=== PATIENT | male | born 1975 | race Caucasian/White ===

== ENCOUNTER 2025-05-22 09:29 | Observation (INO) | payer BC, SELFPAY ==
[2025-05-22 09:45] VITALS: BP 173/101; PULSE 84; RESP 18; TEMP 36.6; O2SAT 98; BMI 28.7
[2025-05-22 10:42] VITALS: BP 135/89; PULSE 75; RESP 18; O2SAT 98
[2025-05-22 10:45] LABS: MANUAL DIFF FLAG NO
--- NOTE | 2025-05-22 10:45 | ED.RECABL ---
HPI - Recheck/Abnormal Lab/Rx General Chief Complaint: Recheck/Abnormal Lab/Rx Stated Complaint: Abnormal labs Time Seen by Provider: 05/22/25 09:55 Source: patient and old records reviewed Mode of arrival: ambulatory Limitations: no limitations History of Present Illness ED Provider: SAGE RANGEL narrative: 50 yo male prior DM was on metformin but changed his diet and got off. His most recent Hemoglobin A1c was 5 but he has not been eating as well as he usually does. He woke up with L sided facial paralysis that has worsened and he was diagnosed with bells palsy by on Monday - he was started on prednisone and valtrex. He had labs done at the day he was diagnosed and his WBC count was low and his BS was up and they noted Na 130. They told him to come back for recheck of hemoglobin A1c today but then ended up referring him to the ED. He has also had elevated BP which is new. He has some pain to the left side of the neck. MD complaint: abnormal lab Initial visit (ago): day(s) (2) Initial visit for: other (bells palsy) Returns today for: called because of abnormal lab/test Symptoms since prior visit: no new symptoms Context: planned re-check and called for abnormal lab result Associated symptoms: none Related Data Allergies Allergy/AdvReac Type Severity Reaction Status Date / Time environmental allergies AdvReac Runny Nose Verified 05/22/25 09:47 Review of Systems Review of Systems: Constitutional : No Fever, No Chills, No Fatigue ENT/Mouth : No sore throat, No Rhinorrhea Eyes: No Eye Pain, No Swelling, No Redness Cardiovascular : No Chest Pain, No SOB, No Dyspnea on Exertion Respiratory : No Cough, No Sputum Gastrointestinal : No Nausea, No Vomiting, No Diarrhea, No abdominal Pain Genitourinary : No Dysuria, No Urinary Frequency, No Hematuria, Musculoskeletal : No joint pain, No Myalgias, No Joint Swelling Skin : No Skin Lesions, No rash Neuro : pos Weakness, pos Numbness, No Dizziness, positive Headache All other systems reviewed and are negative [facility] Past Medical History Attestation statement: The following information was validated with the patient. Source: old records reviewed Medical History Diabetes Social History Social History (Updated 05/22/25 @ 11:45 by MARISOL Zamarripa Alcohol intake: current Patient Tobacco Use Status: Never used Tobacco Smoked in Last 30 Days: No Advance Directives: No Advance Directives Information Provided: Yes Physical Exam Vital Signs: Vital Signs: Last Vital Signs Temp 98.2 F 05/22/25 12:51 Pulse 68 05/22/25 12:51 Resp 18 05/22/25 12:51 BP 143/84 H 05/22/25 12:51 Pulse Ox 100 05/22/25 12:51 O2 Del Method Room Air 05/22/25 12:51 BMI result Body Mass Index 28.7 Appearance: Alert. Oriented X3. No acute distress. Eyes: Pupils equal, round and reactive to light. ENT: Pharynx normal. Neck: Normal inspection. Neck supple. CVS: Normal heart rate and rhythm. Pulses normal. Respiratory: No respiratory distress. Breath sounds normal. Abdomen: Soft and nontender. Skin: Skin warm and dry. Normal skin color. Extremities: No lower extremity edema. Neuro: Oriented X 3. extremities intact, L sided complete lower and upper facial droop. eye remiains open cannot raise his eyebrow Medications Administered Discontinued Medications Generic Name Dose Route Start Last Admin Trade Name Freq PRN Reason Stop Dose Admin Lactated Ringer's 1,000 mls @ 999 mls/hr 05/22/25 11:17 05/22/25 12:40 Lr IV 05/22/25 12:17 Infused .Q1H1M ONE Infusion Lactated Ringer's 1,000 mls @ 999 mls/hr 05/22/25 11:18 05/22/25 12:40 Lr IV 05/22/25 12:18 Infused .Q1H1M ONE Infusion Medical Decision Making Medical Decision Making MDM Narrative: 50 yo male with prior DM but had done well with diet and has not been on metformin. Just diagnosed with bells palsy on Monday on valtrex and prednisone now with low Na, elevated BS, HTN - at this time will need repeat labs, IVF x 2L, check hemoglobin A1c. He likely has chronic worsening issues that were made worse with prednisone. [id number] HbA1c 10 - he will need lantus coverage he is aware, he still has glucometer at home. Differential Diagnosis Differential Diagnoses: The differential diagnosis associated with the presentation includes recurrence of DM2 Admission/Observation Consideration of admission/observation: Escalation of care including admission/observation considered admit given acidosis even after IVF x 2L Consult Healthcare Provider Management of the patient was discussed with: Hospitalist (will admit) Lab Data MDM Lab Attestation statement: I reviewed the patient's lab results. 05/22/25 10:41 05/22/25 13:44 Labs: Lab Results 05/22/25 05/22/25 05/22/25 Range/Units 10:41 11:43 11:52 WBC 3.3 L (4.8-10.8) X10*3/uL RBC 4.94 (4.60-5.80) X10*6/uL Hgb 14.2 (14.0-18.0) g/dl Hct 40.2 L (42.0-52.0) % MCV 81.4 (80.0-98.0) fL MCH 28.7 (27.0-33.0) pg MCHC 35.3 (31.0-36.0) g/dl RDW 15.1 (11.0-16.0) % Plt Count 192 (160-400) X10*3/uL MPV 9.3 L (9.4-12.4) fL Immature Gran % (Auto) 0.0 (0.0-0.4) % Neut % (Auto) 33.2 L (45-73) % Lymph % (Auto) 51.8 H (20-40) % [place] % (Auto) 13.2 H (2-11) % Eos % (Auto) 1.2 (0-4) % Baso % (Auto) 0.6 (0-2) % Lymph # (Auto) 1.7 (1.2-4.9) X10*3/uL [place] # (Auto) 0.4 (0.1-1.2) X10*3/uL Eos # (Auto) 0.0 (0.0-0.4) X10*3/uL Baso # (Auto) 0.0 (0.0-0.2) X10*3/uL Abs Immat Gran (auto) 0.00 (0.00-0.03) X10*3/uL Absolute Neuts (auto) 1.1 L (2.0-8.3) x10*3/uL Absolute Nucleated RBC 0.000 (0.0-0.012) X10*3/uL Nucleated RBC % (auto) 0.0 (0.0-0.2) /100WBC VBG pH 7.38 (7.32-7.43) VBG pCO2 25 mmHg VBG pO2 66 mmHg VBG HCO3 15 L (22-26) mmol/L VBG O2 Saturation 92.0 % VBG Base Excess -8.0 mmol/L Sodium 132 L (135-145) mmol/L Potassium 3.9 (3.3-5.1) mmol/L Chloride 101 (96-108) mmol/L Carbon Dioxide 16 L (22-29) mmol/L Anion Gap 19 (12-20) BUN 23 H (9-16) mg/dL Creatinine 0.96 (0.5-1.4) mg/dL Estim Creat Clear Calc 96.8 Estimated GFR > 60 Random Glucose 284 H (60-115) mg/dL Estimat Average Glucose 263 mg/dL Hemoglobin A1c % 10.8 H (<6.0) % Lactic Acid 1.3 (0.5-2.0) mmol/L Calcium 8.7 (8.4-10.2) mg/dL Total Bilirubin 0.3 (0.0-1.0) mg/dL AST 21 (5-37) U/L ALT 29 (0-40) U/L Alkaline Phosphatase 64 (39-117) U/L Total Protein 8.0 (6.5-8.0) g/dL Albumin 4.2 (3.5-5.0) g/dL Beta-Hydroxybutyrate 4.29 H (0.02-0.27) mmol/L 05/22/25 Range/Units 13:44 WBC (4.8-10.8) X10*3/uL RBC (4.60-5.80) X10*6/uL Hgb (14.0-18.0) g/dl Hct (42.0-52.0) % MCV (80.0-98.0) fL MCH (27.0-33.0) pg MCHC (31.0-36.0) g/dl RDW (11.0-16.0) % Plt Count (160-400) X10*3/uL MPV (9.4-12.4) fL Immature Gran % (Auto) (0.0-0.4) % Neut % (Auto) (45-73) % Lymph % (Auto) (20-40) % [place] % (Auto) (2-11) % Eos % (Auto) (0-4) % Baso % (Auto) (0-2) % Lymph # (Auto) (1.2-4.9) X10*3/uL [place] # (Auto) (0.1-1.2) X10*3/uL Eos # (Auto) (0.0-0.4) X10*3/uL Baso # (Auto) (0.0-0.2) X10*3/uL Abs Immat Gran (auto) (0.00-0.03) X10*3/uL Absolute Neuts (auto) (2.0-8.3) x10*3/uL Absolute Nucleated RBC (0.0-0.012) X10*3/uL Nucleated RBC % (auto) (0.0-0.2) /100WBC VBG pH (7.32-7.43) VBG pCO2 mmHg VBG pO2 mmHg VBG HCO3 (22-26) mmol/L VBG O2 Saturation % VBG Base Excess mmol/L Sodium 133 L (135-145) mmol/L Potassium 4.0 (3.3-5.1) mmol/L Chloride 103 (96-108) mmol/L Carbon Dioxide 18 L (22-29) mmol/L Anion Gap 16 (12-20) BUN 18 H (9-16) mg/dL Creatinine 0.85 (0.5-1.4) mg/dL Estim Creat Clear Calc 109.4 Estimated GFR > 60 Random Glucose 251 H (60-115) mg/dL Estimat Average Glucose mg/dL Hemoglobin A1c % (<6.0) % Lactic Acid (0.5-2.0) mmol/L Calcium 8.5 (8.4-10.2) mg/dL Total Bilirubin (0.0-1.0) mg/dL AST (5-37) U/L ALT (0-40) U/L Alkaline Phosphatase (39-117) U/L Total Protein (6.5-8.0) g/dL Albumin (3.5-5.0) g/dL Beta-Hydroxybutyrate (0.02-0.27) mmol/L External Record Review External record reviewed: Outpatient record Prescription Management I considered prescription management with: Other Discharge Plan Discharge Clinical Impression: Acidosis, Diabetes Patient Disposition: Admitted As Inpatient Print Language: Nepali
[2025-05-22 10:49] LABS: Hematocrit 40.2 % (42.0-52.0); Hemoglobin 14.2 g/dl (14.0-18.0); Imm Gran Abs Auto 0.00 X10*3/uL (0.00-0.03); Imm Gran Pct Auto 0.0 % (0.0-0.4); Lymphocytes Absolute Auto 1.7 X10*3/uL (1.2-4.9); Mean Corpuscular HGB Conc 35.3 g/dl (31.0-36.0); Mean Corpuscular Hemoglobin 28.7 pg (27.0-33.0); Mean Corpuscular Volume 81.4 fL (80.0-98.0); NRBC Abs Auto 0.000 X10*3/uL (0.0-0.012); NRBC Pct Auto 0.0 /100WBC (0.0-0.2); Platelet Count 192 X10*3/uL (160-400); Red Blood Count 4.94 X10*6/uL (4.60-5.80); White Blood Count 3.3 X10*3/uL (4.8-10.8)
[2025-05-22 10:54] LABS: Hemoglobin A1C 344.5268 umol/L; Total Hemoglobin (HGBA1C) 3651.8483 umol/L
[2025-05-22 11:05] LABS: Alanine Aminotransferase 29 U/L (0-40); Albumin Level 4.2 g/dL (3.5-5.0); Alkaline Phosphatase 64 U/L (39-117); Anion Gap 19 (12-20); Aspartate Amino Transferase 21 U/L (5-37); Blood Urea Nitrogen 23 mg/dL (9-16); Calcium 8.7 mg/dL (8.4-10.2); Carbon Dioxide 16 mmol/L (22-29); Chloride 101 mmol/L (96-108); Creatinine Clr Calc Pharmacy 96.8; Estimated Glomerular Filt Rate > 60; Potassium 3.9 mmol/L (3.3-5.1); Sodium 132 mmol/L (135-145); Total Protein 8.0 g/dL (6.5-8.0)
[2025-05-22] MEDS: Lactated Ringers 1,000 ML 999 ML IV ×2 (11:31→11:33)
[2025-05-22 11:55] LABS: Venous Blood Gas Refer to POC result
[2025-05-22 11:56] LABS: VBG HCO3 15 mmol/L (22-26); VBG O2 % Saturation 92.0 %
[2025-05-22 12:51] VITALS: BP 143/84; PULSE 68; RESP 18; TEMP 36.8; O2SAT 100
[2025-05-22 14:07] LABS: Anion Gap 16 (12-20); Blood Urea Nitrogen 18 mg/dL (9-16); Calcium 8.5 mg/dL (8.4-10.2); Carbon Dioxide 18 mmol/L (22-29); Chloride 103 mmol/L (96-108); Creatinine Clr Calc Pharmacy 109.4; Estimated Glomerular Filt Rate > 60; Potassium 4.0 mmol/L (3.3-5.1); Sodium 133 mmol/L (135-145)
--- NOTE | 2025-05-22 14:57 | PHA.MEDREC ---
Addendum entered by Vandana Mathur RPh 05/22/25 15:00: reviewed by [facility]. Original Note: Pharmacy Consult ? Medication Reconciliation Pharmacy has completed the medication reconciliation. Patient was able to confirm med list. Patient last had his medications yesterday.
--- NOTE | 2025-05-22 14:59 | PM.IMHP ---
History of Present Illness Date of Service: 05/22/25 Chief Complaint: abnormal labs The patient is a 50-year-old male who is traveling to [place] for work (lives in [place]) and was diagnosed with Cook's palsy about 3 days prior to hospitalization. Since then he has been on treatment with Valtrex and prednisone. The patient presented to the emergency room due to abnormal labs drawn at urgent care. He denies any specific complaints. He reports that he was diagnosed with diabetes about 8-9 years ago and was on metformin. He states that he improved his diet and was able to wean off of any medications for his diabetes. He reports his last A1c about 1.5 years ago to be around 5 point something. He does however endorse that he has been traveling more recently and has been unable to maintain his diet. In the emergency room the patient had blood work which showed a bicarb of 16 with a anion gap of 19. Subsequent VBG showed normal pH but a low bicarb. His beta hydroxybutyrate was elevated. His sugars were in the 252-80 range. He was treated with 2 L of intravenous fluids with improvement in his chemistry with bicarb going up to 18. However given his positive ketones earlier, not being currently on any medications for diabetes and an A1c today of 10.8, he will be admitted to the hospital for further treatment. Review of Systems Review of Systems: Negative except HPI/interval history. [facility] Medical History Diabetes Social History (Updated 05/22/25 @ 11:45 by Erica Bill DO) Alcohol intake: current Patient Tobacco Use Status: Never used Tobacco Smoked in Last 30 Days: No Advance Directives: No Advance Directives Information Provided: Yes Meds Allergies Allergy/AdvReac Type Severity Reaction Status Date / Time environmental allergies AdvReac Runny Nose Verified 05/22/25 09:47 Active Medications: Current Medications Acetaminophen (Acetaminophen 325 Mg Tablet) 650 mg PO Q6H PRN PRN Reason: Pain, Mild 1-3,fever,headache Calcium Carbonate (Calcium Carbonate 750 Mg Tab.Chew) 750 mg PO Q4H PRN PRN Reason: Heartburn Lactated Ringer's (Lr) 1,000 mls @ 100 mls/hr IVCONT .Q10H [facility] Insulin Human Lispro (Insulin Lispro 100 Unit/Ml 3 Ml Vial) 0 unit SUBCUT QIDACHS [facility]; Protocol Magnesium Hydroxide (Milk Of Magnesia 30 Ml Oral.Susp) 30 ml PO DAILY PRN PRN Reason: Constipation Melatonin (Melatonin 3 Mg Tablet) 6 mg PO BEDTIME PRN PRN Reason: Insomnia Metformin HCl (Metformin Hcl 500 Mg Tablet) 500 mg PO BIDWM [facility] Sodium Chloride (0.9 % Sodium Chloride Flush 3 Ml Syringe) 3 ml IVFLUSH QSHIFT [facility] Home Medications ?Medication ?Instructions ?Recorded ?Confirmed ?Last Taken ?Type fluticasone propionate 50 1 spray intranasal DAILY 05/22/25 05/22/25 05/21/25 History mcg/actuation nasal spray,suspension prednisone 20 mg tablet 60 mg PO DAILY 05/22/25 05/22/25 05/21/25 History valacyclovir 1 gram tablet 1,000 mg PO TID 05/22/25 05/22/25 05/21/25 History Physical Exam Vital Signs and Narrative: Vital Signs: Last Vital Signs Temp 98.2 F 05/22/25 12:51 Pulse 68 05/22/25 12:51 Resp 18 05/22/25 12:51 BP 143/84 H 05/22/25 12:51 Pulse Ox 100 05/22/25 12:51 O2 Del Method Room Air 05/22/25 12:51 BMI result Body Mass Index 28.7 Const: Other: Constitutional - Awake and Alert, No apparent distress Eyes - PERRLA, EOMI Cardiovascular - S1S2, RRR, No edema Respiratory - Normal lung expansion, Normal respiratory effort, No respiratory distress, CTA bilaterally Gastrointestinal - NT / ND; +BS; No rebound or guarding - No CVA tenderness Extremities - no calf tenderness bilaterally, no swelling Musculoskeletal - Normal inspection, normal ROM Skin - Warm/Dry Neurological - Alert & oriented x3, B/L UE/LE equal and normal strength; L facial droop; speech normal Psychological - Appropriate affect Results Labs 05/22/25 10:41 05/22/25 13:44 Labs: Laboratory Results - last 24 hr 05/22/25 05/22/25 05/22/25 10:41 11:43 11:52 MCV 81.4 MCH 28.7 MCHC 35.3 RDW 15.1 Plt Count 192 MPV 9.3 L Immature Gran % (Auto) 0.0 Neut % (Auto) 33.2 L Lymph % (Auto) 51.8 H [place] % (Auto) 13.2 H Eos % (Auto) 1.2 Baso % (Auto) 0.6 Lymph # (Auto) 1.7 [place] # (Auto) 0.4 Eos # (Auto) 0.0 Baso # (Auto) 0.0 Abs Immat Gran (auto) 0.00 Absolute Neuts (auto) 1.1 L Absolute Nucleated RBC 0.000 Nucleated RBC % (auto) 0.0 VBG pH 7.38 VBG pCO2 25 VBG pO2 66 VBG HCO3 15 L VBG O2 Saturation 92.0 VBG Base Excess -8.0 Anion Gap 19 Estim Creat Clear Calc 96.8 Estimated GFR > 60 Random Glucose 284 H Estimat Average Glucose 263 Hemoglobin A1c % 10.8 H Lactic Acid 1.3 Calcium 8.7 Total Bilirubin 0.3 AST 21 ALT 29 Alkaline Phosphatase 64 Total Protein 8.0 Albumin 4.2 Beta-Hydroxybutyrate 4.29 H 05/22/25 13:44 MCV MCH MCHC RDW Plt Count MPV Immature Gran % (Auto) Neut % (Auto) Lymph % (Auto) [place] % (Auto) Eos % (Auto) Baso % (Auto) Lymph # (Auto) [place] # (Auto) Eos # (Auto) Baso # (Auto) Abs Immat Gran (auto) Absolute Neuts (auto) Absolute Nucleated RBC Nucleated RBC % (auto) VBG pH VBG pCO2 VBG pO2 VBG HCO3 VBG O2 Saturation VBG Base Excess Anion Gap 16 Estim Creat Clear Calc 109.4 Estimated GFR > 60 Random Glucose 251 H Estimat Average Glucose Hemoglobin A1c % Lactic Acid Calcium 8.5 Total Bilirubin AST ALT Alkaline Phosphatase Total Protein Albumin Beta-Hydroxybutyrate Assessment and Plan (1) Diabetes: Qualifiers: Diabetes mellitus complication status: without complication Diabetes mellitus manager intermediate insulin use: without retirement use Diabetes mellitus type: other specified (including NOHELIA) Qualified Code(s): E13.9 - Other specified diabetes mellitus without complications Status: Acute Plan 50 yo M with a PMH of DM, not on meds for >4 years, recent diagnosis of [place] Palsy who presents with abnormal labs drawn at urgent care several days ago. Work up shows elevated glucose, ketones and low bicarb. Will be admitted for further treatment. 1. DM with hyperglycemia 1a. Mild/early DKA IVF, humalog, POC; start metformin (previously tolerated); lantus 10 units x 1 now Repeat chem later today and tomorrow AM 2. Elevated BP reports prior high-normal BP monitor for now 3. [place] Palsy continue valtrex + prednisone Full Code DVT pptx - low risk, early ambulation Quality Stroke Does the patient have a stroke diagnosis?: No VTE Prior VTE?: No VTE Risk Level:: Medical - low VTE Device Contraindication: Treatment Not Indicated VTE Drug Contraindication: Treatment Not Indicated
[2025-05-22 15:50] LABS: Appearance Urine Clear; Glucose Urine UA >=1000 mg/dL (Negative); PH 5.0 (5.0-9.0); Specific Gravity - Urine >= 1.030 (1.005-1.025); UMIC TRIGGER UACC YES
[2025-05-22 15:55] VITALS: BP 143/86; PULSE 78; RESP 16; TEMP 36.4; O2SAT 97
[2025-05-22 16:01] LABS: Glucose, Whole Blood 230 mg/dL (60-115)
[2025-05-22] MEDS: Insulin Glargine,Hum.rec.anlog 100 UNIT/ML 10 ML VIAL 10 UNIT SUBCUT (16:05)
[2025-05-22] MEDS: Lactated Ringers 1,000 ML 100 ML IVCONT (16:06)
[2025-05-22] MEDS: 0.9 % Sodium Chloride Flush 3 ML SYRINGE IVFLUSH (16:08)
[2025-05-22 18:16] VITALS: BP 141/85; PULSE 79; RESP 16; TEMP 36.2; O2SAT 96
[2025-05-22 18:22] LABS: Glucose, Whole Blood 220 mg/dL (60-115)
[2025-05-22 19:00] VITALS: BMI 30.6
[2025-05-22 19:23] LABS: Glucose, Whole Blood 270 mg/dL (60-115)
[2025-05-22 19:31] LABS: Anion Gap 18 (12-20); Blood Urea Nitrogen 16 mg/dL (9-16); Calcium 8.4 mg/dL (8.4-10.2); Carbon Dioxide 16 mmol/L (22-29); Chloride 104 mmol/L (96-108); Creatinine Clr Calc Pharmacy 124.4; Estimated Glomerular Filt Rate > 60; Potassium 3.7 mmol/L (3.3-5.1); Sodium 134 mmol/L (135-145)
[2025-05-22 20:00] VITALS: BP 139/82; PULSE 71; RESP 18; TEMP 36.2; O2SAT 98
[2025-05-23] MEDS: Lactated Ringers 1,000 ML 100 ML IVCONT (00:50)
[2025-05-23 04:00] VITALS: BP 105/57; PULSE 66; RESP 16; TEMP 36.4; O2SAT 96
[2025-05-23 06:02] LABS: Anion Gap 16 (12-20); Blood Urea Nitrogen 14 mg/dL (9-16); Calcium 8.5 mg/dL (8.4-10.2); Carbon Dioxide 22 mmol/L (22-29); Chloride 101 mmol/L (96-108); Creatinine Clr Calc Pharmacy 119.7; Estimated Glomerular Filt Rate > 60; Potassium 3.8 mmol/L (3.3-5.1); Sodium 135 mmol/L (135-145)
[2025-05-23 07:29] VITALS: BP 140/81; PULSE 68; RESP 16; TEMP 36.3; O2SAT 98
[2025-05-23 07:38] LABS: Glucose, Whole Blood 222 mg/dL (60-115)
[2025-05-23] MEDS: 0.9 % Sodium Chloride Flush 3 ML SYRINGE IVFLUSH (07:56)
--- NOTE | 2025-05-23 10:32 | MHC.CM.PN ---
Addendum entered by Phyllis Arriola 05/23/25 11:59: DP: PT HAS BEEN MEDICALLY CLEARED FOR DC HOME, NO SERVICES. PT HAS CAR IN LOT. Original Note: WARD DELIVERED. PT IS HERE FROM [place] ON BUSINESS, STAYING IN A HOTEL. PT IS FUNCTIONALLY INDEP. AND HAS NO DME. NO PCP BACK HOME. PT DECLINES COMPLETING A HCP AT THIS TIME. DP: PT WILL RETURN TO HOTEL BEFORE FLYING HOME. PT HAS CAR IN LOT. CM WILL CONTINUE TO FOLLOW FOR ANY CHANGE TO PLAN.
[2025-05-23] MEDS: Insulin Glargine,Hum.rec.anlog 100 UNIT/ML 10 ML VIAL 10 UNIT SUBCUT (10:34)
--- NOTE | 2025-05-23 11:17 | P.DS_ITS ---
DS: Providers Provider Date of Service: 05/23/25 Date of admission: 05/22/25 14:57 Date of discharge: 05/23/25 Primary care physician: Unknown Physician Attending physician on discharge: David Thomas Discharging clinician: Guillermina Smith DS: Diagnosis Discharge Diagnosis (1) Diabetes: Status: Acute DS: Summary Hospital Course Hospital Course: From H&P on the day of admission The patient is a 50-year-old male who is traveling to [place] for work (lives in [place]) and was diagnosed with Cook's palsy about 3 days prior to hospitalization. Since then he has been on treatment with Valtrex and prednisone. The patient presented to the emergency room due to abnormal labs drawn at urgent care. He denies any specific complaints. He reports that he was diagnosed with diabetes about 8-9 years ago and was on metformin. He states that he improved his diet and was able to wean off of any medications for his diabetes. He reports his last A1c about 1.5 years ago to be around 5 point something. He does however endorse that he has been traveling more recently and has been unable to maintain his diet. In the emergency room the patient had blood work which showed a bicarb of 16 with a anion gap of 19. Subsequent VBG showed normal pH but a low bicarb. His beta hydroxybutyrate was elevated. His sugars were in the 252-80 range. He was treated with 2 L of intravenous fluids with improvement in his chemistry with bicarb going up to 18. However given his positive ketones earlier, not being currently on any medications for diabetes and an A1c today of 10.8, he will be a dmitted to the hospital for further treatment. DM with hyperglycemia/Mild/early DKA Treated with IVF, humalog. started on metformin and Lantus 10 units. Bicarb normalized, did not have anion gap. will discharge with oral metformin and 10 units of Lantus as well as diabetic testing supplies. Patient lives in [place], will obtain a PCP in his area when he returns home. He received education regarding injecting insulin, he injects testosterone still feels comfortable giving himself injections. He is not a new diabetic and he understands the importance of checking blood sugars, hypoglycemic precautions were reviewed. his medications were sent to pharmacy and were brought to him along with a cooler and ice packs for his travels back to [place]. Elevated BP reports prior high-normal BP. BP remained stable around 140 or lower since admission, recommend monitoring when PCP is obtained. [place] Palsy Diagnosed at outside facility continue valtrex + prednisone Time Attestation Discharge Coordination Time (in mins): 32 Quality: Safe Use of Opioids Does Pt have an Active Cancer Diagnosis on the Problem List?: No Quality: Stroke Does the patient have a stroke diagnosis?: No Physical Exam Vital Signs: Vital Signs: Last Vital Signs Temp 97.3 F 05/23/25 07:29 Pulse 68 05/23/25 07:29 Resp 16 05/23/25 07:29 BP 140/81 H 05/23/25 07:29 Pulse Ox 98 05/23/25 07:29 O2 Del Method Room Air 05/23/25 07:29 BMI result Body Mass Index 30.6 Const: General: cooperative, comfortable, no acute distress, alert and awake Nutritional Appearance: average body habitus Orientation/consciousness: patient oriented x3 Resp: Effort & Inspection: normal respiratory effort Cardio: Rate: regular rate GI: Palpation (GI): Soft to palpation and nontender Neuro: Other: Cook's palsy - right side facial droop General: patient oriented x3 DS: Data Data Completed and Pending Labs on day of discharge: Laboratory Results - last 24 hr 05/22/25 05/22/25 05/22/25 11:43 11:52 13:44 Hold Purple Top VBG pH 7.38 VBG pCO2 25 VBG pO2 66 VBG HCO3 15 L VBG O2 Saturation 92.0 VBG Base Excess -8.0 Sodium 133 L Potassium 4.0 Chloride 103 Carbon Dioxide 18 L Anion Gap 16 BUN 18 H Creatinine 0.85 Estim Creat Clear Calc 109.4 Estimated GFR > 60 POC Glucose Random Glucose 251 H Lactic Acid 1.3 Calcium 8.5 Beta-Hydroxybutyrate 4.29 H Urine Color Urine Appearance Urine pH Ur Specific [place] Urine Protein Urine Glucose (UA) Urine Ketones Urine Blood Urine Nitrite Ur Leukocyte Esterase Urine RBC Urine WBC Ur Squamous Epith Cells Urine Bacteria Hyaline Casts 05/22/25 05/22/25 05/22/25 15:08 15:57 18:18 Hold Purple Top VBG pH VBG pCO2 VBG pO2 VBG HCO3 VBG O2 Saturation VBG Base Excess Sodium Potassium Chloride Carbon Dioxide Anion Gap BUN Creatinine Estim Creat Clear Calc Estimated GFR POC Glucose 230 H 220 H Random Glucose Lactic Acid Calcium Beta-Hydroxybutyrate Urine Color Yellow Urine Appearance Clear Urine pH 5.0 Ur Specific [place] >= 1.030 H Urine Protein Trace Urine Glucose (UA) >=1000 H Urine Ketones >=160 Urine Blood Negative Urine Nitrite Negative Ur Leukocyte Esterase Negative Urine RBC 0-2 Urine WBC 0-5 Ur Squamous Epith Cells 0-2 Urine Bacteria None Seen Hyaline Casts 3-5 05/22/25 05/22/25 05/23/25 19:06 19:18 05:25 Hold Purple Top SEE NOTE VBG pH VBG pCO2 VBG pO2 VBG HCO3 VBG O2 Saturation VBG Base Excess Sodium 134 L 135 Potassium 3.7 3.8 Chloride 104 101 Carbon Dioxide 16 L 22 Anion Gap 18 16 BUN 16 14 Creatinine 0.77 0.80 Estim Creat Clear Calc 124.4 119.7 Estimated GFR > 60 > 60 POC Glucose 270 H Random Glucose 274 H 219 H Lactic Acid Calcium 8.4 8.5 Beta-Hydroxybutyrate Urine Color Urine Appearance Urine pH Ur Specific [place] Urine Protein Urine Glucose (UA) Urine Ketones Urine Blood Urine Nitrite Ur Leukocyte Esterase Urine RBC Urine WBC Ur Squamous Epith Cells Urine Bacteria Hyaline Casts 05/23/25 07:32 Hold Purple Top VBG pH VBG pCO2 VBG pO2 VBG HCO3 VBG O2 Saturation VBG Base Excess Sodium Potassium Chloride Carbon Dioxide Anion Gap BUN Creatinine Estim Creat Clear Calc Estimated GFR POC Glucose 222 H Random Glucose Lactic Acid Calcium Beta-Hydroxybutyrate Urine Color Urine Appearance Urine pH Ur Specific [place] Urine Protein Urine Glucose (UA) Urine Ketones Urine Blood Urine Nitrite Ur Leukocyte Esterase Urine RBC Urine WBC Ur Squamous Epith Cells Urine Bacteria Hyaline Casts Discharge Plan Discharge Patient Disposition: Home, Self-Care Discharge Diagnosis: Diabetes with hyperglycemia Mild/early DKA Referrals: Physician,Unknown J [Primary Care Provider, Medical] - 1 Week Discharge Medications: New (DME) FreeStyle Lite Strips Strip Qty: 100 0RF Rx Instructions: Test four times a day or as directed. (DME) blood-glucose meter [FreeStyle Lite Meter] Kit Qty: 1 0RF Rx Instructions: As Directed alcohol swabs Pads, Medicated 1 pad TOPICAL QIDACHS Qty: 100 0RF Rx Instructions: Use four times a day or as directed. insulin glargine [Lantus Solostar U-100 Insulin] 100 unit/mL (3 mL) insulin pen 10 unit SUBCUT DAILY Qty: 15 0RF (DME) pen needle, diabetic 32 gauge x 1/4 needle Qty: 100 0RF Rx Instructions: Use four times a day or as directed. (DME) lancets [FreeStyle Lancets] 28 gauge misc Qty: 100 0RF Rx Instructions: Test four times a day or as directed. metformin 1,000 mg tablet 1,000 mg PO BID 90 Days Qty: 180 0RF Continued valacyclovir 1 gram tablet 1,000 mg PO TID prednisone 20 mg tablet 60 mg PO DAILY fluticasone propionate 50 mcg/actuation [place],Suspension 1 spray INTRANASAL DAILY Rx Instructions: administer into each nostril Discharge Orders: Discharge Order (Routine); Ordered 05/23/25 Ordered By: Guillermina Smith Activity on Discharge: As tolerated Stand Alone Forms: Patient Portal Discharge page Print Language: French Care Plan Goals: See below Health Concerns: Diabetes with hyperglycemia Plan of Treatment: Take metformin and Lantus as prescribed Check blood sugars before meals and at bedtime Follow diabetic diet monitor for signs of hypoglycemia such as sweating,feeling lighteheaded or shaky, or confusion call to find a PCP in your area as soon as possible for close follow up Assessment: See discharge summary Patient Instructions: Insulin Glargine (By injection) (Lantus, Lantus SoloStar, Tolalitha, Tesfayeglee), Diabetic Hyperglycemia (GEN), Diabetes and Nutrition (GEN) Discharge Date/Time: 05/23/25 14:18
[2025-05-23 11:32] LABS: Glucose, Whole Blood 316 mg/dL (60-115)
== END 2025-05-23 14:18 | disposition home or self-care (01) ==
LOC: HO.ED 14:32 → HO.EDOVER 15:08 → HO.S3 17:32
PROVIDERS: Admitting Provider Family Medicine; Emergency Provider Emergency Medicine; Visit Provider Physician Assistant Medical
DX: E11.10 Type 2 diabetes mellitus with ketoacidosis without coma (principal); G51.0 Bell's palsy; I10 Essential (primary) hypertension; Z79.84 Long term (current) use of oral hypoglycemic drugs
CPT/HCPCS: 36415; 80048; 80053; 81001; 82010; 82803; 82947; 83036; 83605; 85025; 96360; 96361; 99221; 99285; J7120

== ENCOUNTER → 2025-05-22 14:57 | Outpatient (BNV) | payer BC, SELFPAY | PROVIDERS: Admitting Provider Family Medicine; Emergency Provider Emergency Medicine; Visit Provider Family Medicine | DX: E13.9 Other specified diabetes mellitus without complications (principal) | CPT/HCPCS: 99222; 99239 ==